=== PATIENT | male | born 1965 | race Caucasian/White ===

== ENCOUNTER → 2018-07-23 | Outpatient (CLI) | payer OTHER ==
--- NOTE | 2018-07-23 11:28 | KCIC ---
Three-view right foot dated 07/23/2018. No comparison available. Clinical data indication: Pain for 3 weeks. FINDINGS: 3 views right foot show normal bony alignment. No displaced fracture. 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 Osseous structures otherwise intact. No periostitis or bone destruction. IMPRESSION: 1. No acute radiographic abnormality. 2. 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 Electronically signed by: Dominic Durand MD (07/23/2018 11:25 AM) [id number]
== END | disposition home or self-care (01) ==
LOC: KCIC 09:40
PROVIDERS: ATTEND Physician Assistant Medical
DX: M19.071 Primary osteoarthritis, right ankle and foot (principal)
CPT/HCPCS: 73630

== ENCOUNTER → 2020-03-10 | Outpatient (CLI) | payer OTHER ==
--- NOTE | 2020-03-10 15:53 | KCIC ---
SHOULDER 2+V LEFT DATE: 03/10/2020 12:00 AM INDICATION: Left shoulder pain a couple of days, no injury, decreased ROM. COMPARISON: None. FINDINGS: Bones: There is no evidence of acute fracture or dislocation. Joints: The joint spaces are normal. The acromiohumeral distance is not narrowed. Miscellaneous: Calcification overlying the soft tissues along the posterolateral aspect of the humeral head. IMPRESSION: 1. No acute osseous abnormality. 2. 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 Electronically signed by: Merlin Hermosillo MD (03/10/2020 3:50 PM) [id number]
== END ==
LOC: KCIC 15:22
PROVIDERS: ATTEND Physician Assistant Medical
DX: M25.512 Pain in left shoulder (principal); M79.89 Other specified soft tissue disorders
CPT/HCPCS: 73030

== ENCOUNTER → 2021-05-03 | Outpatient (CLI) | payer OTHER ==
--- NOTE | 2021-05-03 14:34 | KCIC ---
EXAM: Left knee, 3 views. HISTORY: Pain. COMPARISON: None. FINDINGS: 3 views of the left knee are obtained. There is no fracture, dislocation or subluxation. Th ere is no joint effusion. IMPRESSION: No acute osseous finding. Electronically signed by: Karen Duran MD (05/03/2021 2:32 PM) [id number]
== END ==
LOC: KCIC 13:11
PROVIDERS: ATTEND Internal Medicine
DX: Z00.00 Encounter for general adult medical examination without abnormal findings (principal); M25.562 Pain in left knee
CPT/HCPCS: 73562

== ENCOUNTER → 2021-06-18 | Outpatient (CLI) | payer OTHER ==
--- NOTE | 2021-06-19 13:52 | KCIC ---
Exam Date: 06/18/2021 3:40 PM MRI LEFT LOWER EXTREMITY JOINT WITHOUT Indication: Reason: Instability Lt knee joint, loose body Lt knee. / Spl. Instructions: / History: L eft anterior knee pain, no swelling, no known injury.. TECHNIQUE: Routine multiplanar MR imaging of the knee was performed without contrast. FINDINGS: The medial and lateral menisci are intact and within normal limits for age. The anterior cruciate ligament, posterior cruciate ligament, medial collateral ligament, and lateral collateral ligament complex are intact. Patellofemoral extensor mechanism and popliteus tendon are w ithin normal limits. Multifocal full and partial thickness chondral defects are seen in the patellofemoral compartment wit h mild subchondral degenerative marrow signal. There is mild diffuse chondral thinning in the medial compartment without full-thickness chondral loss. Cartilage in the lateral compartment is intact. Bone marrow demonstrates benign signal on all sequences. No acute fracture is seen. Small tricompar tment osteophytes are noted. Physiologic joint fluid is present. No intra-articular body is seen. There is no popliteal cyst. IMPRESSION: Mild degenerative changes with full and partial thickness chondral defects in the patellofemoral comp artment. Mild partial thickness chondral loss in the medial compartment. Intact menisci and ligaments. No acute fracture. Electronically signed by: Bob Cummings MD (06/19/2021 1:49 PM) [email or web address]
== END ==
LOC: KCIC MRI 15:34
PROVIDERS: ATTEND Family Medicine
DX: M17.12 Unilateral primary osteoarthritis, left knee (principal); M25.762 Osteophyte, left knee; M25.362 Other instability, left knee; M23.42 Loose body in knee, left knee
CPT/HCPCS: 73721